=== PATIENT | male | born 1980 | race Two or more races ===

== ENCOUNTER 2017-09-20 04:15 | Inpatient (IN) | payer MEDICAID ==
[~2017-09-20] VITALS: Ht 172.7 cm; Wt 78.5 kg
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
[2017-09-20] MEDS ORDERED: TDAP [DIPH/PERTUSSIS/TET] 0.5 ML VIAL IM ONE ×2 (04:34→05:00)
[2017-09-20 04:41] LABS: BASOPHILS % (AUTO) 0.3 % (0.0-2.0); HEMATOCRIT 53 % (39-51); LYMPHOCYTES # (AUTO) 2.1 /CMM (0.8-4.8); LYMPHOCYTES % (AUTO) 28.8 % (20.0-44.0); MEAN CORPUSCULAR HEMOGLOBIN 32 PG (26.0-33.0); MEAN CORPUSCULAR HGB CONC 34 g/dl (31.0-36.0); MEAN CORPUSCULAR VOLUME 93 fL (80-96); MONOCYTES # (AUTO) 0.5 /CMM (0.1-1.30); MONOCYTES % (AUTO) 7.3 % (2.0-12.0); NEUTROPHILS # (AUTO) 4.7 /CMM (1.8-8.9); NEUTROPHILS % (AUTO) 63.6 % (43.0-81.0); PLATELET COUNT (AUTO) 331 /CMM (150-450); RDW COEFFICIENT OF VARIATION 13.2 (11.5-15.0); RED BLOOD CELL COUNT(AUTO) 5.69 MIL/uL (4.5-6.0); WHITE BLOOD COUNT (AUTO) 7.3 K/uL (4.3-11.0)
--- NOTE | 2017-09-20 04:43 | NUR ---
ADMINISTERED TDAP VAC ON LT SHOULDER IM . LOT # [id number], EXP DATE: 05/01/19
[2017-09-20 04:44] LABS: APPEARANCE,URINE CLEAR (CLEAR); BILIRUBIN,URINE NEGATIVE (NEGATIVE); BLOOD, URINE NEGATIVE Ery/uL (NEGATIVE); COLOR,URINE YELLOW (YELLOW); KETONES,URINE NEGATIVE (NEGATIVE); LEUKOCYTE ESTERASE ,URINE NEGATIVE (NEGATIVE); NITRITE, URINE NEGATIVE (NEGATIVE); PROTEIN,URINE NEGATIVE (NEGATIVE); UGLUCOSE NEGATIVE (NEGATIVE); UROBILINOGEN,URINE 0.2 EU/dL (0.2)
[2017-09-20] MEDS ORDERED: LIDOCAINE 1% INJ 50 ML MDV IJ ONE (04:50)
[2017-09-20 04:54] LABS: CALCIUM, SERUM 9.6 mg/dL (8.5-10.1); CREATININE 1.4 mg/dL (0.6-1.3); POTASSIUM 4.1 mmol/L (3.5-5.1)
[2017-09-20 04:59] LABS: BILIRUBIN,TOTAL 0.2 mg/dL (0.2-1.0); SALICYLATE 3.2 mg/dL (2.8-20.0); TOTAL PROTEIN, SERUM 7.7 g/dL (6.4-8.2)
[2017-09-20] MEDS ORDERED: IV NS 0.9% 1,000 ML BAG IV ONE (05:00)
--- NOTE | 2017-09-20 05:00 | NUR ---
LT ARM LACERATION BEING SUTURED AT BEDSIDE.
--- NOTE | 2017-09-20 05:20 | NUR ---
ER TALKING TO PANEL MD HOFFMAN REGARDING PT ADMISSION.
--- NOTE | 2017-09-20 05:51 | NUR ---
REPORT CALLED TO TELE BRAYDON GONZÁLES. WILL TRANSPORT PT VIA [facility].
[2017-09-20] MEDS ORDERED: MAG HYDROX/AL HYDROX/SIMETH 30 ML UDC PO PRN (06:00)
[2017-09-20] MEDS ORDERED: Z GUARD REMEDY 2 OZ OINT TP PRN (06:00)
[2017-09-20] MEDS ORDERED: ONDANSETRON HCL/PF 4 MG/2 ML VIAL IVP PRN (06:00)
[2017-09-20] MEDS ORDERED: ACETAMINOPHEN 325 MG TABLET PO PRN (06:00)
[2017-09-20] MEDS ORDERED: MAGNESIUM HYDROXIDE 30 ML UDC PO PRN (06:00)
[2017-09-20] MEDS: PANTOPRAZOLE 40 MG TABLET.DR PO SCH (07:30)
--- NOTE | 2017-09-20 07:30 | NUR ---
VIDEO PRESENTATION OPERATOR/NOTES RECEIVED PT FROM ER STILL DROWSY ,MOANING WHEN YOU TRIED TO WAKE HIM UP, NO SIGNS OF ANY ACUTE DISTRESS NOTED. TELE SINUS RHYTHM PER MONITOR . VITAL SIGNS STABLE. UNABLE TO GET INFORMATION AT THIS TIME. ENDORSE TO AM NURSE CLOUD FOR CONTINUITY OF CARE.SITTER AT THE BEDSIDE.
--- NOTE | 2017-09-20 07:36 | NUR ---
- RN OPENING NOTES: - PATIENT SLEEPING SOUNDLY , CALL LIGHT WITHIN REACH , ON TELEMETRY .
[2017-09-20 08:00] VITALS: BP 92/62
[2017-09-20] MEDS ORDERED: HYDR-3026 PO (08:06)
[2017-09-20] MEDS ORDERED: SERT25TA PO (08:06)
[2017-09-20 08:53] VITALS: BP 92/62
[2017-09-20] MEDS: IV NS 0.9% 1,000 ML IV PRN (11:37)
[2017-09-20 12:29] VITALS: BP 105/67
--- NOTE | 2017-09-20 12:30 | NUR ---
patient more alert & cooperative to questions , responding verbally slurred speech a little bit, visited by & was allowed clear liquid & to progress gradually as tolerated by patient. Face sheet was faxed to [employer] for the PSYCHE EVAL ordered. POISON CONTROL called & was given updates of vital signs & alertness , was recommended by Poison Control to monitor vital signs q 4 hours.
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
--- NOTE | 2017-09-20 15:04 | NUR ---
- Delonte sagastume was followed up by calling [employer] & was told that faxed facesheet was received & somebody will be here this PM, as per Claudine. .
[2017-09-20 16:23] VITALS: BP 107/72
--- NOTE | 2017-09-20 18:05 | NUR ---
- Psychham sagastume was followed up again by calling [employer] & was informed by GAURAV that face sheet was given to lDr. Gillette, on-call psychiatrist earlier. Informed vicenta Mandujano RN.
--- NOTE | 2017-09-20 18:08 | NUR ---
Patient tolerated soft diet this pm without problems, ambulated to bathroom .
--- NOTE | 2017-09-20 18:10 | NUR ---
- patient was transferred to [facility] via same bed, alert, & oriented x4, with infusing IV.
--- NOTE | 2017-09-20 18:41 | NUR ---
RN CLOSING NOTES: -patient is alert, verbaly responsive, speech is more clear this time, tolerated soft diet for dinner, denies problems, IV infusing , call light within reach, still on 1:1 sitter.
--- NOTE | 2017-09-20 19:30 | NUR ---
RN NOTE; RECEIVED PT IN BED DOZING INTERMITTENTLY. BREATHING EVENLY. NO SOB. NAD. NO SUICIDAL VERBALIZATION AT THIS TIME. REMAINED ON 1:1 SITTER / SUPERVISION FOR SAFETY. DENIED ANY PAIN OR DISCOMFORT AT THIS TIME. DRESSING ON BILAT WRIST CDI. ON ONGOING IVF HYDRATION. REPORTED CURRENT SOFT DIET GOKUL WELL. DENIED N/V. NEEDS ATTENDED . CALL LIGHT WITHIN REACH. WILL CONT TO MONITOR .
[2017-09-20 19:49] VITALS: BP 119/77
[2017-09-20 20:00] VITALS: BP 119/77
--- NOTE | 2017-09-20 21:50 | NUR ---
PT W/ C/O INSOMNIA AND INABILITY TO SLEEP. REQUESTING SLEEPING PILL . EXPLAINED TO THE PT THAT WE'RE TRYING TO AVOID NARCOTICS AND OPIOIDS IN HIS CASE BUT WILL TRY TO ASK MD FOR A REPLACEMENT. CALLED DR. HOFFMAN AND OBTAINED AN ORDER FOR BENADRYL 25MG. NEW ORDER NOTED.
[2017-09-20] MEDS ORDERED: diphenhydrAMINE HCL 25 MG CAPSULE ONE (21:55)
[2017-09-21] MEDS: diphenhydrAMINE HCL 25 MG CAPSULE PO PRN ×2 (00:53→22:07)
[2017-09-21] MEDS: IV NS 0.9% 1,000 ML IV PRN (00:55)
--- NOTE | 2017-09-21 00:55 | NUR ---
BENADRYL GIVEN ORDERED PER PT'S REQUEST SLEEPING AID. WILL CONT TO MONITOR .
--- NOTE | 2017-09-21 06:38 | NUR ---
RN NOTE; PT IN BED DOZING INTERMITTENTLY. BREATHING EVENLY. NO SOB. NO ACUTE EVENT DURING THE NIGHT. NO OVERDOSE REACTION. ON 1:1 SITTER FOR SAFETY . NEEDS ATTENDED . ASSISTED W/ ADLS, CALL LIGHT WITHIN REACH. WILL CONT TO MONITOR AND WILL ENDORSE TO AM SHIFT FOR CHETAN.
[2017-09-21 07:29] LABS: BASOPHILS % (AUTO) 0.2 % (0.0-2.0); EOSINOPHILS % (AUTO) 0.5 % (0.0-6.0); HEMATOCRIT 54 % (39-51); HEMOGLOBIN 18.1 g/dL (13.5-17.5); LYMPHOCYTES # (AUTO) 1.8 /CMM (0.8-4.8); LYMPHOCYTES % (AUTO) 26.3 % (20.0-44.0); MEAN CORPUSCULAR HEMOGLOBIN 31 PG (26.0-33.0); MEAN CORPUSCULAR HGB CONC 34 g/dl (31.0-36.0); MEAN CORPUSCULAR VOLUME 93 fL (80-96); MONOCYTES # (AUTO) 0.6 /CMM (0.1-1.30); MONOCYTES % (AUTO) 8.6 % (2.0-12.0); NEUTROPHILS # (AUTO) 4.4 /CMM (1.8-8.9); NEUTROPHILS % (AUTO) 64.4 % (43.0-81.0); PLATELET COUNT (AUTO) 242 /CMM (150-450); RDW COEFFICIENT OF VARIATION 13.8 (11.5-15.0); RED BLOOD CELL COUNT(AUTO) 5.75 MIL/uL (4.5-6.0); WHITE BLOOD COUNT (AUTO) 6.9 K/uL (4.3-11.0)
--- NOTE | 2017-09-21 07:30 | NUR ---
RN OPENING NOTES PT. DENIES SUICIDAL IDEATION, SELF HARM OR HARM TO OTHERS.
--- NOTE | 2017-09-21 07:35 | NUR ---
RN OPENING NOTES RECEIVED PT. IN BED A&OX4, WATCHING TV. BREATHING UNLABORED AND EVENLY ON ROOM AIR. NO S/S OF ACUTE DISTRESS. IV ACCESS ON RIGHT ANTECUBITAL SITE INTACT AND PATENT WITH SALINE FLUSH. BOTH FOREARMS ARE WRAPPED IN KERLIX DRESSING, DRY AND INTACT. BED IS IN LOWEST AND LOCKED POSITION. 2 SIDE RAILS UP, AND INSTRUCTED PT. TO USE CALL LIGHT FOR ASSISTANCE. ALL NEEDS MET. WILL CONTINUE TO ASSESS AND MONITOR.
[2017-09-21 07:52] LABS: ALBUMIN 3.6 g/dL (3.4-5.0); BILIRUBIN,TOTAL 0.5 mg/dL (0.2-1.0); CALCIUM, SERUM 8.9 mg/dL (8.5-10.1); CREATININE 1.1 mg/dL (0.6-1.3); MAGNESIUM 1.9 mg/dL (1.8-2.4); PHOSPHORUS 2.8 mg/dL (2.5-4.9); POTASSIUM 4.2 mmol/L (3.5-5.1); TOTAL PROTEIN, SERUM 6.9 g/dL (6.4-8.2)
[2017-09-21] MEDS: PANTOPRAZOLE 40 MG TABLET.DR PO SCH (07:54)
[2017-09-21 08:00] VITALS: BP 127/80
[2017-09-21 09:53] LABS: BAND % (MANUAL) 1 % (0.0-5.0); LYMPHOCYTES % (MANUAL) 18 % (16-48); MONOCYTES % (MANUAL) 6 % (0-11.0); NEUTROPHILS % (MANUAL) 75 (42-76)
--- NOTE | 2017-09-21 11:44 | NUR ---
WOUND CARE CONSULT: PT PRESENTS WITH CLOSED LACERATION TO LEFT ARM WITH STERI STRIPS AND SUTURES AND SUPERFICIAL LACERATION/SCRATCH TO RT ARM WITH SOME STERI STRIPS, PRESENT ON ADMISSION. PT IS AMBULATORY AND CONTINENT. RECOMMENDATIONS MADE FOR SKIN PROTECTION. DISCUSSED WITH NURSING STAFF. SITTER AT BEDSIDE. WILL SEE PRN. IN AGREEMENT WITH PLAN OF CARE.
--- NOTE | 2017-09-21 11:48 | NUR ---
RN NOTES WOUND CARE PERFORMED ON BILATERAL FOREARMS WITH KELLI WOUND CARE NURSE.
[2017-09-21 16:00] VITALS: BP_SYST 106; BP_SYST 92; BP_DIAS 42; BP_DIAS 61
[2017-09-21] MEDS ORDERED: diphenhydrAMINE HCL 50 MG/ML VIAL IV ONE (16:30)
[2017-09-21] MEDS ORDERED: LORAZEPAM INJ 2 MG/ML VIAL IV ONE (16:30)
--- NOTE | 2017-09-21 16:40 | NUR ---
RN NOTES PT. WAS EXPRESSING SEVERE ANXIETY, AND NERVOUSNESS, BY STATING THAT HE IS FEELING ANXIOUS THAT NO ONE HAS BEEN HERE TO SEE HIM SINCE THIS MORNING. PT.'S BODY IS SHAKING. NOTIFIED MERLENE VENTURA NP, AND NEW ORDER WAS GIVEN TO ADMINISTER MEDICATION 2MG ATIVAN, AND 50 MG BENADRYL IVP STAT.
--- NOTE | 2017-09-21 16:46 | NUR ---
MIKI met with pt. to provide him with mental health outpatient resources. Upon entering pt's room, Pt. appeared slumped over sitting on his bed and was shivering. Pt. is severely anxious and has been waiting to see the psychiatrist so that he can continue to take his anxiety medications since he hasn't taken any since being admitted. MIKI spoke with MARKY Jefferson and VITOR Gage who will be giving pt. some anxiety medications. Per emergency communications dispatcher Jina, Dr. Savage, psychiatrist is on his way to see the patient.
--- NOTE | 2017-09-21 17:00 | NUR ---
RN NOTES PT. WAS SEEN AND EXAMINED BY PSYCHIATRIST. NEW ORDER WAS GIVEN FOR PT. TO BE EVALUATED BY CRISIS TEAM. PER MD THE PT.'S PARTNER NEEDS TO BE CONTACTED TO CHECK HOW COMFORTABLE FOR PARTNER TO TAKE PT. HOME.
--- NOTE | 2017-09-21 17:01 | NUR ---
RN NOTES CRISIS TEAM WAS CONTACTED FOR A PT. EVALUATION.
[2017-09-21 17:30] VITALS: BP 111/73
[2017-09-21] MEDS: NICOTINE PATCH (7MG) 7 MG PATCH.TD24 TD SCH (17:48)
--- NOTE | 2017-09-21 19:00 | NUR ---
RN NOTES: RECEIVED AWAKE SITTING ON THE BED, A/OX3, NO PAIN OR DISCOMFORT OR ANY RESPIRATORY DEPRESSION NOTED,ABLE TO MAKE NEEDS KNOWN.DRESSING INTACT ON RIGHT AND LEFT WRIST AREA,ON IVF OF NS AT 75 ML/HR, CANNULA ON RAC G#18, PER ENDORSEMENT IVF IS ONLY PRN IF PATIENT IS ABLE TO DRINK ADEQUATE AMOUNT OF WATER,WILL CONTINUE TO OFFER FLUIDS AT FREQUENT INTERVALS;SEEN BY SHANICE(CRISIS PHYSICIAN GYNECOLOGIST) IN THE AFTERNOON, AWAITING FOR PARTNER'S REPLY.BED LOW AND LOCKED,FALL AND SAFETY PRECAUTION OBSERVED, CALL LIGHT WITHIN EASY REACH, SITTER AT BED SIDE.
--- NOTE | 2017-09-21 19:00 | NUR ---
RN CLOSING NOTES PT. IN BED A&OX4. BREATHING UNLABORED AND EVENLY ON ROOM AIR. NO S/S OF ACUTE DISTRESS. IV ACCESS ON RIGHT ANTECUBITAL SITE INTACT AND PATENT WITH SALINE FLUSH. BOTH FOREARMS ARE WRAPPED IN KERLIX DRESSING, DRY AND INTACT. BED IS IN LOWEST AND LOCKED POSITION. 2 SIDE RAILS UP, AND INSTRUCTED PT. TO USE CALL LIGHT FOR ASSISTANCE. ALL NEEDS MET. WILL ENDORSE REPORT TO NURSE. PT. WAS SEEN BY CRISIS TEAM KITCHEN STEWARDESSSHANICE.
--- NOTE | 2017-09-21 19:46 | NUR ---
Pt.states he resides with his partner at [address] [place] [address] in [place]. Pt. moved from [place] about a month ago. 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 Pt. states he is clinically depressed and doesn't feel like doing anything. MIKI inquired with pt. if he is interested in seeing a therapist. Pt. does want to see a therapist. SW to give pt. referrals to mental health clinics prior to discharge. Pt. denies being suicidal or homicidal at this time. Pt. denies visual/auditory hallucinations. Pt. is currently taking Zoloft, Clonidine, Ativan and Benadryl at night to assist him in sleeping. A psychiatrist consult has been ordered for the pt. He currently signed up for a program through [facility] in [place] for substance abuse rehab. Addendum: 09/21/17 at 1947 by MARIAH PHELPS RN Amended: Links added.
[2017-09-21 20:00] VITALS: BP_SYST 103; BP_SYST 104; BP_DIAS 66; BP_DIAS 84
[2017-09-21] MEDS ORDERED: QUETIAPINE FUMARATE 100 MG TABLET PO SCH (22:00)
--- NOTE | 2017-09-21 22:10 | NUR ---
RN NOTES: SEROQUEL Q HS GIVEN, THEN HE REQUESTED TO TAKE HIS BENADRYL PRN ,TAKING ORAL FLUIDS IN MODERATE AMOUNT.PROVIDED WATER PITCHER AT BEDSIDE AND ENCOURAGE TO DRINK.SAFETY PRECAUTION OBSERVED.
[2017-09-22] MEDS ORDERED: LORAZEPAM INJ 2 MG/ML VIAL IV ONE (04:00)
[2017-09-22] MEDS ORDERED: LORAZEPAM INJ 2 MG/ML VIAL ONE (04:05)
--- NOTE | 2017-09-22 04:14 | NUR ---
RN NOTES: ABLE TO SLEEP AT SHORT INTERVALS, AWAKEN WHEN HIS ROOM MATE SHOUTED,HE WAS VERY ANXIOUS AND FEARFULL UPON HE GET UP, HE REQUEST FOR HIS MEDICATION,SITTER TRIED TO PACIFY HIM AND DO NON PHARMACOLOGIC INTERVENTION TO MAKE HIM RELAX,DEEP BREATHING DID NOT HELP HE IS FEELING UNCOMFORTABLE AND RESTLESS, V/S BP-107/82 MA-79 SPO2-93% RA, NOTIFIED ,ORDERED TO GIVE ATIVAN 2MG STAT IV. GIVEN AT 0407. ENCOURAGE TO GO BACK TO SLEEP, KEPT COMFORTABLE IN BED, CALL LIGHT WITHIN EASY REACH.
--- NOTE | 2017-09-22 06:53 | NUR ---
RN NOTES: ABLE TO SLEEP AFTER MEDICATION GIVEN, KEPT RESTED,ENDORSED F0R CONTINUITY OF CARE.CALL LIGHT WITHIN EASY REACH.
--- NOTE | 2017-09-22 07:25 | NUR ---
RN OPENING NOTES 1:1 SITTER AT BEDSIDE. RECEIVED PT. IN BED SLEEPING. BREATHING UNLABORED AND EVENLY ON ROOM AIR. NO S/S OF ACUTE DISTRESS. BOTH FOREARMS ARE WRAPPED IN KERLIX DRESSING, DRY AND INTACT. BED IS IN LOWEST AND LOCKED POSITION. 2 SIDE RAILS UP, AND CALL LIGHT IS WITHIN REACH. WILL CONTINUE TO ASSESS AND MONITOR.
--- NOTE | 2017-09-22 07:30 | NUR ---
RN NOTES PT. DENIES SUICIDAL IDEATION, AND PLAN. PT. DENIES A PLAN TO HARM HIMSELF, AND OTHERS.
[2017-09-22 08:00] VITALS: BP 110/74
[2017-09-22] MEDS: PANTOPRAZOLE 40 MG TABLET.DR PO SCH (08:07)
[2017-09-22] MEDS: NICOTINE PATCH (7MG) 7 MG PATCH.TD24 TD SCH (08:07)
[2017-09-22 09:00] VITALS: BP 155/87
[2017-09-22] MEDS ORDERED: QUETIAPINE FUMARATE 25 MG TABLET PO SCH (09:00)
[2017-09-22] MEDS ORDERED: SERTRALINE HCL 50 MG TABLET PO SCH (09:00)
--- NOTE | 2017-09-22 11:43 | NUR ---
RN NOTES PT. WAS SEEN AND EXAMINED BY CRISIS BULB TESTER SHANICE. PT. IS OKAY TO BE DISCHARGED IF PT. 'S PARTNER AGREES TO GO HOME WITH PT. PT. AND SHANICE HAVE ATTEMPTED TO REACH PT.'S PARTNER , TARIQ 3 TIMES.
--- NOTE | 2017-09-22 13:50 | NUR ---
RN NOTES PT. EXPRESSED THAT HE WAS FEELING VERY ANXIOUS AN NERVOUS. PT. HAS BEEN TRYING TO GET IN TOUCH WITH HIS PARTNER SINCE THIS MORNING AND HAS BEEN UNABLE TO REACH HIM BY PHONE. PT. LOOKS LIKE HE IS SHAKING, AND SOUNDS NERVOUS. MD WAS CONTACTED AND DISCUSSED PT. CONDITION. NEW MD ORDER WAS GIVEN TO ADMINISTER ATIVAN 0.5 MG PO ONCE.
[2017-09-22] MEDS ORDERED: LORAZEPAM 0.5 MG TABLET PO ONE (14:30)
--- NOTE | 2017-09-22 15:02 | NUR ---
RN NOTES RAGHAV TALKED TO HIS PARTNER, TARIQ ON THE PHONE AND SAID THAT HIS PARTNER IS GOING THROUGH AN EMOTIONAL TIME HIMSELF RIGHT NOW, AND IS NOT WILLING TO TAKE PT. HOME, BUT his partners FRIEND COULD POSSIBLY TAKE PT. TO AN LGBT CENTER WHERE HE CAN FIND A SUPPORT NETWORK AND PLACE TO GO FROM THERE. RAGHAV SAID THAT HE WOULD PREFER TO GO TO THE LGBT CENTER TO FIND GET SUPPORT FROM THERE. TALKED TO PT.'S PARTNER TARIQ ON THE PHONE. EXPLAINED TO TARIQ THAT RAGHAV HAS BEEN CLEARED BY A MEDICAL DOCTOR FOR DISCHARGE. ALSO HAD AN EVALUATION BY A PSYCHIATRIST, AND A CRISIS TEAM INDUSTRIAL RELATIONS WORKER, AND CLEARED PT. IS SAFE FOR DISCHARGE. TARIQ VERBALIZED THAT HE CANNOT GO HOME WITH HIM, AND THAT HE IS NOT ALLOWED BACK IN THEIR HOME BECAUSE HE IS CONCERNED FOR HIS OWN SAFETY. TARIQ SAID THAT RAGHAV WAS IN THE HOSPITAL 2 1/2 WEEKS AGO FOR THE SAME KIND OF EPISODE. I ASKED TARIQ ABOUT ANOTHER FRIEND WHO MIGHT BE AVAILABLE TO TAKE RAGHAV TO AN LGBT CENTER FOR SUPPORT. TARIQ SAID THAT HE WILL CONTACT THEIR FRIEND BUT WILL HAVE TO DISCLOSE RAGHAV'S PAST MEDICAL HISTORY TO HIS FRIEND TO HELP DECIDE IF THEY FEEL SAFE ENOUGH TO PICK PT. UP TO [facility]. TARIQ SAID HE WILL CALL [facility] TO SEE WHAT KIND OF SUPPORT SERVICES ARE AVAILABLE FOR RAGHAV.
[2017-09-22 16:00] VITALS: BP 155/87
--- NOTE | 2017-09-22 16:00 | NUR ---
RN NOTES TALKED TO TRAIQ ON THE PHONE. TARIQ EXPRESSED THAT HE IS VERY UNCOMFORTABLE PICKING PT. UP AND DOES NOT HAVE ANYONE ELSE WHO CAN EITHER. TARIQ SAID HE WILL NOT BE ABLE TO BRING PT. BACK HOME. TARIQ WAS EXPLAINED THAT IF HE IS UNABLE TO TAKE RESPONSIBILITY FOR THE PT. THEN THE CRISIS FERRYBOAT HELPER WILL FIND PLACEMENT. TARIQ VERBALIZED UNDERSTANDING AND AGREED.
[2017-09-22] MEDS ORDERED: SERT50TA PO (17:07)
[2017-09-22] MEDS ORDERED: QUET100T PO (17:07)
[2017-09-22] MEDS ORDERED: QUET25TA PO (17:07)
--- NOTE | 2017-09-22 17:30 | NUR ---
RN NOTES REPORT WAS GIVEN TO VITOR HERMOSILLO FROM [facility].
--- NOTE | 2017-09-22 17:55 | NUR ---
RN NOTES PT. IS IN MEDICALLY STABLE CONDITION. PROVIDED DISCHARGE INSTRUCTIONS WITH EDUCATION, AND PT. VERBALIZED UNDERSTANDING. DISCHARGE PAPERS WERE SIGNED. BELONGINGS LIST WAS CHECKED AND SIGNED. PT. SAID HE PULLED HIS IV OUT WHILE GIVING HIMSELF A SPONGE BATH IN THE RESTROOM. NO S/S OF BLEEDING FROM IV SITE. PT. IS AWAITING AMBULANCE TO BE TRANSFERRED TO [facility] ON A 5[address] HOLD.
--- NOTE | 2017-09-22 19:37 | NUR ---
STAFFING COORDINATOR NOTES PT. LEFT IN MEDICALLY STABLE CONDITION BY AMBULANCE. PT.'S PARTNER LEFT ALONG SIDE PT. DISCHARGE PACKET WAS GIVEN TO AMBULANCE CREW. ALL QUESTIONS WERE ANSWERED.
== END 2017-09-22 19:46 | DRG 812 ==
LOC: ER 04:19 → TELE 06:06 → MED 07:53
PROVIDERS: ADMIT Internal Medicine; ATTEND Family Medicine
DX: T50.902A Poisoning by unspecified drugs, medicaments and biological substances, intentional self-harm, initial encounter (principal); N17.0 Acute kidney failure with tubular necrosis; F32.2 Major depressive disorder, single episode, severe without psychotic features; R45.851 Suicidal ideations; F41.9 Anxiety disorder, unspecified; Y92.89 Other specified places as the place of occurrence of the external cause; F43.10 Post-traumatic stress disorder, unspecified; I10 Essential (primary) hypertension; Z82.49 Family history of ischemic heart disease and other diseases of the circulatory system; Z83.3 Family history of diabetes mellitus; S61.512A Laceration without foreign body of left wrist, initial encounter; S61.511A Laceration without foreign body of right wrist, initial encounter; F17.200 Nicotine dependence, unspecified, uncomplicated; F12.90 Cannabis use, unspecified, uncomplicated; E88.9 Metabolic disorder, unspecified; R73.9 Hyperglycemia, unspecified
CPT/HCPCS: 36415; 80048-TC; 80053-TC; 80061-TC; 80076-TC; 80305; 81000-TC; 82962-TC; 83735-TC; 84100-TC; 85025-TC; 87081-TC; 90715; A4606; A6402; A6403; G0480; J1200; J2060; J3490; J7030; Q0163; Z7610